=== PATIENT | male | born 1955 | race Caucasian/White ===

== ENCOUNTER 2018-11-26 13:20 | Inpatient (IN) | payer MEDICARE, OTHER ==
[2018-11-26] MEDS ORDERED: DEXTROSE 5%-0.45% NACL 1,000 ML IV (14:12)
[2018-11-26] MEDS ORDERED: VANCOMYCIN IV PER PHARMACY XX (14:30)
[2018-11-26] MEDS ORDERED: ACETAMINOPHEN 650MG/20.3ML CUP PO (14:30)
[2018-11-26] MEDS ORDERED: ONDANSETRON 4 MG INJ IV (14:30)
[2018-11-26] MEDS ORDERED: MAGNESIUM HYDROXIDE 30ML CUP PO (14:30)
[2018-11-26] MEDS ORDERED: ALBUTEROL 0.083% (NEB) 2.5 MG/3 ML AMP NEB (14:30)
[2018-11-26] MEDS ORDERED: ACETAMINOPHEN 650 MG SUPP PR (14:30)
[2018-11-26] MEDS ORDERED: DOCUSATE SODIUM 100 MG CAP PO (14:30)
[2018-11-26] MEDS: NORepinephrine 8MG/250 ML (PMX 250 ML IV (14:40)
[2018-11-26 14:47] LABS: ABNORMAL IP MESSAGE 1; MEAN CORPUSCULAR HEMOGLOBIN 28.4 pg (29.0-33.0); MEAN CORPUSCULAR VOLUME 94.7 fl (82.0-101.0); NUCLEATED RED BLOOD CELLS% 0.4 /100WBC (0.0-0.0); POSITIVE DIFF @See below; RED BLOOD COUNT 2.43 10^6/ul (4.70-6.10); RED CELL DISTRIBUTION WIDTH 21.6 % (11.5-14.5)
[2018-11-26 14:48] LABS: Allen Test ACCEPTAB; Arterial Base Excess 0.3 mmol/L (-3.0-3); Arterial Blood Gas Oxygen Sat 96.7 mmHG (95.0-98.0); Arterial COHb 0.8 % (0.0-3.0); Arterial Fraction of Oxyhgb 95.6 % (93.0-99.0); Arterial HCO3 22.7 mmol/L (22.0-26.0); Arterial MetHb 0.3 % (0.0-1.5); Arterial pCO2 27.6 mmhg (35-45); MODE NASAL CANNULA; Site Right Radial
[2018-11-26] MEDS ORDERED: NORepinephrine 8MG/250 ML (PMX 250 ML (14:55)
[2018-11-26 14:58] LABS: HEMOGLOBIN 6.9 g/dl (14.0-18.0); PLATELET COUNT 40 10^3/UL (140-415)
[2018-11-26 14:59] LABS: ADD MAN DIFF? YES
[2018-11-26 15:09] LABS: ALANINE AMINOTRANSFERASE 58 IU/L (13-69); ALBUMIN 2.4 g/dl (3.3-4.9); ALKALINE PHOSPHATASE 43 IU/L (42-121); ANION GAP 7 (5-13); ASPARTATE AMINO TRANSFERASE 29 IU/L (15-46); BILIRUBIN,INDIRECT 1.7 mg/dl (0-1.1); BILIRUBIN,TOTAL 1.7 mg/dl (0.2-1.3); BLOOD UREA NITROGEN 88 mg/dl (7-20); CALCIUM 7.5 mg/dl (8.4-10.2); CARBON DIOXIDE 24 mmol/L (21-31); CHLORIDE 121 mmol/L (97-110); CREATININE 1.64 mg/dl (0.61-1.24); Estimated GFR 42 mL/min (>60); GLUCOSE 178 mg/dl (70-220); MAGNESIUM 2.8 mg/dl (1.7-2.5); POTASSIUM 4.1 mmol/L (3.5-5.1); SODIUM 152 mmol/L (135-144); TOTAL PROTEIN 5.4 g/dl (6.1-8.1)
[2018-11-26] MEDS: DEXTROSE 5% 1,000 ML IV (15:19)
[2018-11-26] MEDS: MEROPENEM 1 GM/50ML(PMX) 50 ML IVPB ×2 (15:23→20:14)
[2018-11-26 15:26] LABS: TOTAL IRON BINDING CAPACITY 191 ug/dl (241-421)
[2018-11-26 15:39] LABS: IRON < 10 ug/dl (35-150)
[2018-11-26] MEDS: ALBUTEROL 0.083% (NEB) 2.5 MG/3 ML AMP NEB ×2 (16:10→21:38)
[2018-11-26 16:21] LABS: ANISOCYTOSIS 1+ (0-0); BAND NEUTROPHILS #M 0.4 10^3/ul (0.0-0.6); BAND NEUTROPHILS % (M) 4 % (0-4); LYMPHOCYTES #M 0.3 10^3/ul (0.8-2.9); LYMPHOCYTES % (M) 3 % (15-51); OVALOCYTES 2+ (0-0); PLATELET ESTIMATE NORMAL; POIKILOCYTOSIS 1+ (0-0); POLYCHROMASIA 2+ (0-0); SEG NEUT #M 10.3 10^3/ul (1.6-7.5); SEGMENTED NEUTROPHILS (M) % 93 % (39-77); SMUDGE%M 4 % (0-0)
[2018-11-26] MEDS ORDERED: PHENYLephrine 20MG IN 250 ML 250 ML (16:28)
[2018-11-26] MEDS: VANCOMYCIN HCL 1.5 GM in SOD CHLORIDE 0.9% 250 ML IVPB (16:56)
[2018-11-26] MEDS: MIDODRINE 5 MG TAB GTB (17:00)
[2018-11-26] MEDS: LIDOCAINE 1% (MPF) 5 ML VIAL SC (17:15)
[2018-11-26] MEDS ORDERED: PHENTOLAMINE 5 MG INJ IV (18:00)
[2018-11-26] MEDS: INSULIN ASPART [NOVOLOG] 3 ML PEN SC ×2 (18:40→20:19)
[2018-11-26] MEDS: PHENTOLAMINE 5 MG INJ SC (18:58)
[2018-11-26] MEDS: MICONAZOLE 2% 30 GM CR TOP (20:14)
[2018-11-26] MEDS: FAMOTIDINE 20 MG INJ IV (20:14)
[2018-11-26] MEDS: DIGOXIN 500 MCG INJ IV (20:14)
[2018-11-26] MEDS: QUETIAPINE 25 MG TAB PO (20:15)
[2018-11-27 01:16] LABS: LACTIC ACID 1.7 mmol/L (0.5-2.0)
[2018-11-27] MEDS: ALBUTEROL 0.083% (NEB) 2.5 MG/3 ML AMP NEB ×6 (01:21→20:08)
[2018-11-27] MEDS: INSULIN ASPART [NOVOLOG] 3 ML PEN SC ×6 (01:37→20:19)
[2018-11-27 05:27] LABS: ABNORMAL IP MESSAGE 1; HEMATOCRIT 26.8 % (42.0-52.0); HEMOGLOBIN 8.2 g/dl (14.0-18.0); MEAN CORPUSCULAR HEMOGLOBIN 29.1 pg (29.0-33.0); MEAN CORPUSCULAR HGB CONC 30.6 g/dl (32.0-37.0); MEAN PLATELET VOLUME 11.9 fl (7.4-10.4); PLATELET COUNT 35 10^3/UL (140-415); POSITIVE DIFF @See below; RED BLOOD COUNT 2.82 10^6/ul (4.70-6.10); RED CELL DISTRIBUTION WIDTH 20.1 % (11.5-14.5)
[2018-11-27 05:27] LABS: WHITE BLOOD COUNT 15.8 10^3/ul (4.8-10.8)
[2018-11-27 05:46] LABS: ADD MAN DIFF? YES
[2018-11-27 05:54] LABS: LACTIC ACID 1.9 mmol/L (0.5-2.0)
[2018-11-27 05:55] LABS: INR 2.49; PT RATIO 2.1
[2018-11-27 06:01] LABS: ALANINE AMINOTRANSFERASE 55 IU/L (13-69); ALBUMIN 2.5 g/dl (3.3-4.9); ALBUMIN/GLOBULIN RATIO 0.86; ALKALINE PHOSPHATASE 40 IU/L (42-121); ANION GAP 8 (5-13); ASPARTATE AMINO TRANSFERASE 33 IU/L (15-46); BILIRUBIN,INDIRECT 2.1 mg/dl (0-1.1); BILIRUBIN,TOTAL 2.1 mg/dl (0.2-1.3); BLOOD UREA NITROGEN 94 mg/dl (7-20); CALCIUM 7.4 mg/dl (8.4-10.2); CARBON DIOXIDE 25 mmol/L (21-31); CHLORIDE 118 mmol/L (97-110); Estimated GFR 41 mL/min (>60); GLUCOSE 132 mg/dl (70-220); MAGNESIUM 2.7 mg/dl (1.7-2.5); POTASSIUM 4.5 mmol/L (3.5-5.1); SODIUM 151 mmol/L (135-144); TOTAL PROTEIN 5.4 g/dl (6.1-8.1)
[2018-11-27] MEDS: DEXTROSE 5% 1,000 ML IV ×2 (07:05→21:19)
[2018-11-27] MEDS: ALBUMIN HUMAN 25% 100 ML IV ×3 (07:05→18:34)
[2018-11-27] MEDS: MEROPENEM 1 GM/50ML(PMX) 50 ML IVPB ×2 (08:27→20:12)
[2018-11-27] MEDS: CITALOPRAM 20 MG TAB PO (09:00)
[2018-11-27] MEDS: MIDODRINE 5 MG TAB GTB ×3 (09:00→15:50)
[2018-11-27] MEDS: QUETIAPINE 25 MG TAB PO ×2 (09:00→20:03)
[2018-11-27] MEDS: ALBUMIN HUMAN 25% 50 ML IV ×3 (10:28→20:11)
[2018-11-27] MEDS: MICONAZOLE 2% 30 GM CR TOP ×2 (10:29→21:44)
[2018-11-27 11:19] LABS: PROCALCITONIN 2.23 ng/mL (0.00-0.10)
[2018-11-27 11:21] LABS: ANISOCYTOSIS 2+ (0-0); BAND NEUTROPHILS #M 4.4 10^3/ul (0.0-0.6); BAND NEUTROPHILS % (M) 28 % (0-4); ERYTHROBLAST% (NRBC) (M) 3 % (0-0); GIANT THROMBO% (M) 1 % (0-0); LYMPHOCYTES #M 0.3 10^3/ul (0.8-2.9); LYMPHOCYTES % (M) 2 % (15-51); MICROCYTOSIS 1+ (0-0); MONOCYTE #M 0.6 10^3/ul (0.3-0.9); MONOCYTES % (M) 4 % (0-11); PLATELET ESTIMATE SIG DECREASED; POIKILOCYTOSIS 3+ (0-0); POLYCHROMASIA 3+ (0-0); REACTIVE LYMPHOCYTES #M 0.1 10^3/ul (0.0-0.0); REACTIVE LYMPHOCYTES% (M) 1 % (0-0); SEGMENTED NEUTROPHILS (M) % 65 % (39-77); SMUDGE%M 10 % (0-0)
[2018-11-27 14:40] LABS: OCCULT BLOOD STOOL POSITIVE (NEGATIVE)
[2018-11-27] MEDS: NORepinephrine 8MG/250 ML (PMX 250 ML IV (15:37)
[2018-11-27] MEDS: VANCOMYCIN 1 GM 250 ML IVPB (15:41)
[2018-11-27] MEDS: SOD CHLORIDE 0.9% 500 ML IV ×2 (15:50→18:31)
[2018-11-27] MEDS: PHENYLephrine 80 MG in DEXTROSE 5% 242 ML IV ×2 (16:22→20:30)
[2018-11-27] MEDS: FAMOTIDINE 20 MG INJ IV (20:12)
[2018-11-27] MEDS: DIGOXIN 500 MCG INJ IV (20:12)
[2018-11-27] MEDS: HALOPERIDOL 5 MG INJ IM (22:02)
[2018-11-28] MEDS: INSULIN ASPART [NOVOLOG] 3 ML PEN SC ×6 (01:00→21:00)
[2018-11-28] MEDS: ALBUTEROL 0.083% (NEB) 2.5 MG/3 ML AMP NEB ×6 (01:14→21:03)
[2018-11-28] MEDS: PHENYLephrine 80 MG in DEXTROSE 5% 242 ML IV ×4 (01:34→14:40)
[2018-11-28] MEDS: ALBUMIN HUMAN 25% 50 ML IV ×2 (01:45→09:38)
[2018-11-28] MEDS: NORepinephrine 8MG/250 ML (PMX 250 ML IV ×2 (03:57→20:19)
[2018-11-28 04:50] LABS: ADD MAN DIFF? NO
[2018-11-28 05:37] LABS: PHOSPHORUS 3.2 mg/dl (2.5-4.9)
[2018-11-28 05:41] LABS: DIGOXIN 1.2 ng/ml (1.0-2.0)
[2018-11-28 05:50] LABS: WHITE BLOOD COUNT 16.9 10^3/ul (4.8-10.8)
[2018-11-28 05:50] LABS: ABNORMAL IP MESSAGE 1; BASOPHILS % 0.1 % (0.0-2.0); HEMATOCRIT 23.4 % (42.0-52.0); HEMOGLOBIN 7.4 g/dl (14.0-18.0); LYMPHOCYTES # 0.6 10^3/ul (0.8-2.9); LYMPHOCYTES % 3.5 % (15.0-51.0); MEAN CORPUSCULAR HEMOGLOBIN 29.5 pg (29.0-33.0); MEAN CORPUSCULAR HGB CONC 31.6 g/dl (32.0-37.0); MEAN CORPUSCULAR VOLUME 93.2 fl (82.0-101.0); MONOCYTE # 0.6 10^3/ul (0.3-0.9); MONOCYTES % 3.5 % (0.0-11.0); NEUTROPHIL # 15.6 10^3/ul (1.6-7.5); NEUTROPHILS % 91.9 % (39.0-77.0); NUCLEATED RED BLOOD CELLS # 0.5 10^3/ul (0.0-0.0); NUCLEATED RED BLOOD CELLS% 2.8 /100WBC (0.0-0.0); POSITIVE DIFF @See below; RED BLOOD COUNT 2.51 10^6/ul (4.70-6.10); RED CELL DISTRIBUTION WIDTH 19.8 % (11.5-14.5)
[2018-11-28 05:59] LABS: PLATELET COUNT 29 10^3/UL (140-415)
[2018-11-28 06:05] LABS: THYROID STIMULATING HORMONE 0.128 MIU/L (0.465-4.680)
[2018-11-28 07:03] LABS: ALANINE AMINOTRANSFERASE 41 IU/L (13-69); ALBUMIN 3.2 g/dl (3.3-4.9); ALBUMIN/GLOBULIN RATIO 1.28; ALKALINE PHOSPHATASE 39 IU/L (42-121); ANION GAP 16 (5-13); ASPARTATE AMINO TRANSFERASE 27 IU/L (15-46); BILIRUBIN,INDIRECT 3.1 mg/dl (0-1.1); BILIRUBIN,TOTAL 3.8 mg/dl (0.2-1.3); BLOOD UREA NITROGEN 80 mg/dl (7-20); CALCIUM 7.4 mg/dl (8.4-10.2); CARBON DIOXIDE 17 mmol/L (21-31); CHLORIDE 112 mmol/L (97-110); CREATININE 1.57 mg/dl (0.61-1.24); Estimated GFR 45 mL/min (>60); GLUCOSE 124 mg/dl (70-220); MAGNESIUM 2.6 mg/dl (1.7-2.5); POTASSIUM 4.3 mmol/L (3.5-5.1); SODIUM 145 mmol/L (135-144); TOTAL PROTEIN 5.7 g/dl (6.1-8.1)
[2018-11-28 07:40] LABS: PROTIME 37.7 Sec (11.9-14.9); PT RATIO 2.9
[2018-11-28 07:41] LABS: INR 3.83
[2018-11-28] MEDS: MIDODRINE 5 MG TAB GTB ×3 (09:00→17:00)
[2018-11-28] MEDS: CITALOPRAM 20 MG TAB PO (09:00)
[2018-11-28] MEDS: QUETIAPINE 25 MG TAB PO ×2 (09:00→20:13)
[2018-11-28] MEDS: MICONAZOLE 2% 30 GM CR TOP ×2 (09:42→20:13)
[2018-11-28] MEDS: MEROPENEM 1 GM/50ML(PMX) 50 ML IVPB ×2 (09:44→20:13)
[2018-11-28] MEDS: DEXTROSE 5% 1,000 ML IV ×2 (10:39→20:13)
[2018-11-28 10:53] LABS: TYPE AND SCREEN 1
[2018-11-28 11:26] LABS: IMMEDIATE SPIN CROSSMATCH 1 2
[2018-11-28] MEDS: ACETAMINOPHEN 1000MG/100ML IV 100 ML IVPB (11:44)
[2018-11-28] MEDS: PHYTONADIONE 10 MG in DEXTROSE 5% 50 ML IVPB (12:43)
[2018-11-28] MEDS: VANCOMYCIN 1 GM 250 ML IVPB (16:59)
[2018-11-28] MEDS: FAMOTIDINE 20 MG INJ IV (20:13)
[2018-11-28 23:58] LABS: ADD UMIC YES; UR ASCORBIC ACID NEGATIVE (NEGATIVE); UR BACTERIA FEW /HPF (NONE SEEN); UR BILIRUBIN (Dip) NEGATIVE (NEGATIVE); UR BLOOD (Dip) 2+ mg/dL (NEGATIVE); UR CLARITY CLOUDY (CLEAR); UR COLOR AMBER (YELLOW); UR GLUCOSE (Dip) NEGATIVE (NEGATIVE); UR GRANULAR CAST FEW /HPF (NONE SEEN); UR HYALINE CAST FEW /HPF (NONE SEEN); UR KETONES (Dip) NEGATIVE (NEGATIVE); UR LEUKOCYTE ESTERASE (Dip) TRACE Leu/ul (NEGATIVE); UR MUCUS FEW /HPF (NONE SEEN); UR NITRITE (Dip) NEGATIVE (NEGATIVE); UR RBC 20 /HPF (0-5); UR SPECIFIC GRAVITY (Dip) 1.017 (1.003-1.030); UR TOTAL PROTEIN (Dip) 1+ mg/dl (NEGATIVE); UR UROBILINOGEN (Dip) 1+ mg/dL (NEGATIVE); UR WBC 10 /HPF (0-5)
[2018-11-29] LABS: CREATININE,URINE RANDOM 69.92 mg/dl (20-370)
[2018-11-29 00:01] LABS: SODIUM,URINE RANDOM < 13 mmol/L (30-90)
[2018-11-29] MEDS: ALBUTEROL 0.083% (NEB) 2.5 MG/3 ML AMP NEB ×6 (01:36→20:42)
[2018-11-29] MEDS: PHENYLephrine 80 MG in DEXTROSE 5% 242 ML IV ×6 (01:51→23:58)
[2018-11-29] MEDS: INSULIN ASPART [NOVOLOG] 3 ML PEN SC ×6 (01:52→20:40)
[2018-11-29 05:40] LABS: ADD MAN DIFF? NO
[2018-11-29 05:48] LABS: ABNORMAL IP MESSAGE 1; BASOPHILS % 0.2 % (0.0-2.0); HEMATOCRIT 26.3 % (42.0-52.0); HEMOGLOBIN 8.7 g/dl (14.0-18.0); LYMPHOCYTES # 0.7 10^3/ul (0.8-2.9); LYMPHOCYTES % 4.2 % (15.0-51.0); MEAN CORPUSCULAR HEMOGLOBIN 29.3 pg (29.0-33.0); MEAN CORPUSCULAR HGB CONC 33.1 g/dl (32.0-37.0); MEAN CORPUSCULAR VOLUME 88.6 fl (82.0-101.0); MONOCYTE # 0.6 10^3/ul (0.3-0.9); MONOCYTES % 3.6 % (0.0-11.0); NEUTROPHIL # 15.4 10^3/ul (1.6-7.5); NUCLEATED RED BLOOD CELLS # 0.4 10^3/ul (0.0-0.0); NUCLEATED RED BLOOD CELLS% 2.6 /100WBC (0.0-0.0); POSITIVE DIFF @See below; RED BLOOD COUNT 2.97 10^6/ul (4.70-6.10); RED CELL DISTRIBUTION WIDTH 20.4 % (11.5-14.5)
[2018-11-29 05:48] LABS: WHITE BLOOD COUNT 16.9 10^3/ul (4.8-10.8)
[2018-11-29 05:55] LABS: PLATELET COUNT 40 10^3/UL (140-415)
[2018-11-29 06:17] LABS: INR 2.28; PROTIME 25.2 Sec (11.9-14.9)
[2018-11-29 06:18] LABS: ALANINE AMINOTRANSFERASE 38 IU/L (13-69); ALBUMIN 2.7 g/dl (3.3-4.9); ALBUMIN/GLOBULIN RATIO 1.08; ALKALINE PHOSPHATASE 49 IU/L (42-121); ANION GAP 11 (5-13); ASPARTATE AMINO TRANSFERASE 27 IU/L (15-46); BILIRUBIN,INDIRECT 4.4 mg/dl (0-1.1); BILIRUBIN,TOTAL 5.8 mg/dl (0.2-1.3); BLOOD UREA NITROGEN 70 mg/dl (7-20); CALCIUM 7.3 mg/dl (8.4-10.2); CARBON DIOXIDE 20 mmol/L (21-31); CHLORIDE 111 mmol/L (97-110); CREATININE 1.33 mg/dl (0.61-1.24); Estimated GFR 54 mL/min (>60); GLUCOSE 191 mg/dl (70-220); MAGNESIUM 2.5 mg/dl (1.7-2.5); POTASSIUM 4.1 mmol/L (3.5-5.1); SODIUM 142 mmol/L (135-144); TOTAL PROTEIN 5.2 g/dl (6.1-8.1)
[2018-11-29 06:28] LABS: PHOSPHORUS 3.2 mg/dl (2.5-4.9)
[2018-11-29] MEDS: MEROPENEM 1 GM/50ML(PMX) 50 ML IVPB ×2 (08:20→20:31)
[2018-11-29] MEDS: DEXTROSE 5%-0.9% NACL 1,000 ML IV ×2 (08:22→20:38)
[2018-11-29] MEDS: CITALOPRAM 20 MG TAB PO (08:31)
[2018-11-29] MEDS: MIDODRINE 5 MG TAB GTB ×3 (08:31→17:00)
[2018-11-29] MEDS: MICONAZOLE 2% 30 GM CR TOP ×2 (08:31→20:31)
[2018-11-29] MEDS: QUETIAPINE 25 MG TAB PO ×2 (08:36→20:26)
[2018-11-29 08:42] LABS: Allen Test ACCEPTAB; Arterial Base Excess -4.8 mmol/L (-3.0-3); Arterial Fraction of Oxyhgb 89.9 % (93.0-99.0); Arterial HCO3 16.7 mmol/L (22.0-26.0); Arterial MetHb 0.2 % (0.0-1.5); Arterial pCO2 21.5 mmhg (35-45); MODE ROOM AIR; Site Right Radial
[2018-11-29] MEDS: NORepinephrine 8MG/250 ML (PMX 250 ML IV (09:49)
[2018-11-29] MEDS: FAMOTIDINE 20 MG INJ IV (20:31)
[2018-11-30] MEDS: ALBUTEROL 0.083% (NEB) 2.5 MG/3 ML AMP NEB ×6 (00:42→20:50)
[2018-11-30] MEDS: INSULIN ASPART [NOVOLOG] 3 ML PEN SC ×6 (01:10→21:00)
[2018-11-30] MEDS: PHENYLephrine 80 MG in DEXTROSE 5% 242 ML IV ×4 (04:24→22:15)
[2018-11-30 05:17] LABS: ADD MAN DIFF? NO
[2018-11-30 05:21] LABS: ABNORMAL IP MESSAGE 1; HEMATOCRIT 21.5 % (42.0-52.0); LYMPHOCYTES # 0.5 10^3/ul (0.8-2.9); LYMPHOCYTES % 4.5 % (15.0-51.0); MEAN CORPUSCULAR HEMOGLOBIN 28.6 pg (29.0-33.0); MEAN CORPUSCULAR HGB CONC 32.1 g/dl (32.0-37.0); MEAN CORPUSCULAR VOLUME 89.2 fl (82.0-101.0); MONOCYTE # 0.6 10^3/ul (0.3-0.9); MONOCYTES % 5.3 % (0.0-11.0); NEUTROPHIL # 9.3 10^3/ul (1.6-7.5); NEUTROPHILS % 89.4 % (39.0-77.0); NUCLEATED RED BLOOD CELLS # 0.2 10^3/ul (0.0-0.0); NUCLEATED RED BLOOD CELLS% 1.8 /100WBC (0.0-0.0); POSITIVE DIFF @See below; RED BLOOD COUNT 2.41 10^6/ul (4.70-6.10); RED CELL DISTRIBUTION WIDTH 20.7 % (11.5-14.5)
[2018-11-30 05:21] LABS: WHITE BLOOD COUNT 10.4 10^3/ul (4.8-10.8)
[2018-11-30 05:45] LABS: HEMOGLOBIN 6.9 g/dl (14.0-18.0)
[2018-11-30 05:46] LABS: PLATELET COUNT 19 10^3/UL (140-415)
[2018-11-30 05:48] LABS: PATH REVIEW? YES
[2018-11-30 06:05] LABS: Estimated GFR > 60 mL/min (>60)
[2018-11-30 06:18] LABS: ADD MAN DIFF? NO
[2018-11-30 06:24] LABS: ABNORMAL IP MESSAGE 1; BASOPHILS % 0.1 % (0.0-2.0); HEMATOCRIT 25.5 % (42.0-52.0); HEMOGLOBIN 8.2 g/dl (14.0-18.0); LYMPHOCYTES # 0.5 10^3/ul (0.8-2.9); LYMPHOCYTES % 4.4 % (15.0-51.0); MEAN CORPUSCULAR HEMOGLOBIN 28.7 pg (29.0-33.0); MEAN CORPUSCULAR HGB CONC 32.2 g/dl (32.0-37.0); MEAN CORPUSCULAR VOLUME 89.2 fl (82.0-101.0); MONOCYTE # 0.6 10^3/ul (0.3-0.9); MONOCYTES % 5.5 % (0.0-11.0); NEUTROPHIL # 10.2 10^3/ul (1.6-7.5); NUCLEATED RED BLOOD CELLS # 0.2 10^3/ul (0.0-0.0); POSITIVE DIFF @See below; RED BLOOD COUNT 2.86 10^6/ul (4.70-6.10); RED CELL DISTRIBUTION WIDTH 20.5 % (11.5-14.5)
[2018-11-30 06:24] LABS: WHITE BLOOD COUNT 11.4 10^3/ul (4.8-10.8)
[2018-11-30 06:29] LABS: PLATELET COUNT 16 10^3/UL (140-415)
[2018-11-30 06:42] LABS: INR 1.58; PT RATIO 1.5
[2018-11-30 07:26] LABS: ANION GAP 6 (5-13); BLOOD UREA NITROGEN 43 mg/dl (7-20); CARBON DIOXIDE 21 mmol/L (21-31); CHLORIDE 116 mmol/L (97-110); CREATININE 0.86 mg/dl (0.61-1.24); MAGNESIUM 2.3 mg/dl (1.7-2.5); PHOSPHORUS 2.3 mg/dl (2.5-4.9); SODIUM 143 mmol/L (135-144)
[2018-11-30 07:52] LABS: CALCIUM 7.3 mg/dl (8.4-10.2); GLUCOSE 112 mg/dl (70-220); POTASSIUM 3.3 mmol/L (3.5-5.1)
[2018-11-30] MEDS: MIDODRINE 5 MG TAB GTB ×3 (08:10→16:31)
[2018-11-30] MEDS: QUETIAPINE 25 MG TAB PO ×2 (08:10→21:00)
[2018-11-30] MEDS: CITALOPRAM 20 MG TAB PO (08:10)
[2018-11-30] MEDS: DEXTROSE 5%-0.9% NACL 1,000 ML IV (08:15)
[2018-11-30] MEDS: MEROPENEM 1 GM/50ML(PMX) 50 ML IVPB ×2 (08:16→22:39)
[2018-11-30] MEDS: MICONAZOLE 2% 30 GM CR TOP ×2 (08:17→21:00)
[2018-11-30 09:27] LABS: AMMONIA < 9 umol/l (9-30)
[2018-11-30 09:38] LABS: ANISOCYTOSIS 2+ (0-0); BAND NEUTROPHILS #M 0.3 10^3/ul (0.0-0.6); BAND NEUTROPHILS % (M) 3 % (0-4); BURR CELLS 2+ (0-0); ERYTHROBLAST% (NRBC) (M) 2 % (0-0); LYMPHOCYTES #M 0.3 10^3/ul (0.8-2.9); LYMPHOCYTES % (M) 3 % (15-51); OVALOCYTES 1+ (0-0); PLATELET ESTIMATE SIG DECREASED; POIKILOCYTOSIS 3+ (0-0); POLYCHROMASIA 2+ (0-0); SEG NEUT #M 9.8 10^3/ul (1.6-7.5); SEGMENTED NEUTROPHILS (M) % 94 % (39-77); SMUDGE%M 5 % (0-0)
[2018-11-30] MEDS: POTASSIUM CHLORIDE 100 ML IVPB ×3 (09:40→13:57)
[2018-11-30] MEDS: SOD FERRIC GLUC COMPLX 125 MG in SOD CHLORIDE 0.9% 100 ML IVPB (13:49)
[2018-11-30 15:57] LABS: CREATININE, RANDOM URINE 72 mg/dL (20-320); MICROALBUMIN 23.2 mg/dL; MICROALBUMIN/CREATININE RATIO 322 (<30)
[2018-11-30 16:20] LABS: HEPATITIS B SURFACE ANTIGEN NEGATIVE (NEGATIVE)
[2018-11-30] MEDS: CASPOFUNGIN 70 MG in SOD CHLORIDE 0.9% 250 ML IVPB (16:31)
[2018-11-30] MEDS: WARFARIN 1 MG TAB PO (16:31)
[2018-11-30 16:38] LABS: HEPATITIS B CORE ANTIBODY NEGATIVE (NEGATIVE); HEPATITIS C VIRAL ANTIBODY NEGATIVE (NEGATIVE)
[2018-11-30] MEDS: HALOPERIDOL 5 MG INJ IM (22:40)
[2018-11-30] MEDS: FAMOTIDINE 20 MG INJ IV (22:45)
[2018-11-30] MEDS: LORAZEPAM 2 MG INJ IV (23:48)
[2018-12-01] MEDS: DILTIAZEM 25 MG INJ IV
[2018-12-01] MEDS: DEXTROSE 5%-0.9% NACL 1,000 ML IV (00:31)
[2018-12-01] MEDS: INSULIN ASPART [NOVOLOG] 3 ML PEN SC ×6 (01:00→20:28)
[2018-12-01] MEDS: ALBUTEROL 0.083% (NEB) 2.5 MG/3 ML AMP NEB ×6 (01:08→20:21)
[2018-12-01 04:56] LABS: ADD MAN DIFF? NO
[2018-12-01 05:02] LABS: WHITE BLOOD COUNT 6.2 10^3/ul (4.8-10.8)
[2018-12-01 05:02] LABS: BASOPHILS % 0.2 % (0.0-2.0); EOSINOPHILS % 0.2 % (0.0-7.0); HEMATOCRIT 24.5 % (42.0-52.0); HEMOGLOBIN 7.7 g/dl (14.0-18.0); LYMPHOCYTES # 0.5 10^3/ul (0.8-2.9); LYMPHOCYTES % 7.3 % (15.0-51.0); MEAN CORPUSCULAR HEMOGLOBIN 28.5 pg (29.0-33.0); MEAN CORPUSCULAR HGB CONC 31.4 g/dl (32.0-37.0); MEAN CORPUSCULAR VOLUME 90.7 fl (82.0-101.0); MONOCYTE # 0.4 10^3/ul (0.3-0.9); MONOCYTES % 6.6 % (0.0-11.0); NEUTROPHIL # 5.2 10^3/ul (1.6-7.5); NEUTROPHILS % 83.4 % (39.0-77.0); NUCLEATED RED BLOOD CELLS # 0.2 10^3/ul (0.0-0.0); NUCLEATED RED BLOOD CELLS% 2.8 /100WBC (0.0-0.0); RED CELL DISTRIBUTION WIDTH 21.1 % (11.5-14.5)
[2018-12-01 05:03] LABS: ABNORMAL IP MESSAGE 1; POSITIVE DIFF @See below
[2018-12-01 05:21] LABS: PLATELET COUNT 21 10^3/UL (140-415)
[2018-12-01 05:23] LABS: INR 1.54; PROTIME 18.6 Sec (11.9-14.9); PT RATIO 1.5
[2018-12-01 05:35] LABS: ANION GAP 7 (5-13); BLOOD UREA NITROGEN 34 mg/dl (7-20); CALCIUM 7.3 mg/dl (8.4-10.2); CARBON DIOXIDE 21 mmol/L (21-31); CHLORIDE 119 mmol/L (97-110); CREATININE 0.89 mg/dl (0.61-1.24); Estimated GFR > 60 mL/min (>60); GLUCOSE 130 mg/dl (70-220); MAGNESIUM 2.3 mg/dl (1.7-2.5); PHOSPHORUS 2.1 mg/dl (2.5-4.9); POTASSIUM 3.9 mmol/L (3.5-5.1); SODIUM 147 mmol/L (135-144)
[2018-12-01 05:38] LABS: ALANINE AMINOTRANSFERASE 36 IU/L (13-69); ALBUMIN 2.3 g/dl (3.3-4.9); ALKALINE PHOSPHATASE 45 IU/L (42-121); ASPARTATE AMINO TRANSFERASE 30 IU/L (15-46); BILIRUBIN,INDIRECT 3.8 mg/dl (0-1.1); BILIRUBIN,TOTAL 6.9 mg/dl (0.2-1.3)
[2018-12-01] MEDS: CITALOPRAM 20 MG TAB PO (08:03)
[2018-12-01] MEDS: QUETIAPINE 25 MG TAB PO ×2 (08:04→20:29)
[2018-12-01] MEDS: MIDODRINE 5 MG TAB GTB ×3 (09:00→17:00)
[2018-12-01] MEDS: MICONAZOLE 2% 30 GM CR TOP ×2 (09:13→20:30)
[2018-12-01] MEDS: MEROPENEM 1 GM/50ML(PMX) 50 ML IVPB ×2 (09:14→20:25)
[2018-12-01] MEDS: POTASSIUM PHOSPHATE 20 MEQ in SOD CHLORIDE 0.9% 250 ML IVPB (09:18)
[2018-12-01] MEDS ORDERED: PANTOPRAZOLE 40 MG INJ IV (09:30)
[2018-12-01] MEDS: DEXTROSE 5%-0.45% NACL 1,000 ML IV ×2 (09:37→19:37)
[2018-12-01] MEDS: FAMOTIDINE 20 MG INJ IV ×2 (11:16→20:25)
[2018-12-01 13:07] LABS: IMMEDIATE SPIN CROSSMATCH 1 2
[2018-12-01] MEDS: SOD FERRIC GLUC COMPLX 125 MG in SOD CHLORIDE 0.9% 100 ML IVPB (13:44)
[2018-12-01] MEDS: SOD CHLORIDE 0.9% 250 ML IV* (13:45)
[2018-12-01] MEDS: morphine 2 MG INJ IV (14:31)
[2018-12-01] MEDS: CASPOFUNGIN 50 MG in SOD CHLORIDE 0.9% 250 ML IVPB (18:06)
[2018-12-01] MEDS: PHENYLephrine 80 MG in DEXTROSE 5% 242 ML IV (18:39)
[2018-12-02] MEDS: INSULIN ASPART [NOVOLOG] 3 ML PEN SC ×6 (01:00→21:00)
[2018-12-02] MEDS: ALBUTEROL 0.083% (NEB) 2.5 MG/3 ML AMP NEB ×6 (01:04→20:01)
[2018-12-02] MEDS: PHENYLephrine 80 MG in DEXTROSE 5% 242 ML IV ×2 (01:36→14:32)
[2018-12-02] MEDS: DEXTROSE 5%-0.45% NACL 1,000 ML IV ×2 (04:14→17:07)
[2018-12-02] MEDS: morphine 2 MG INJ IV ×3 (04:18→17:14)
[2018-12-02 05:26] LABS: ABNORMAL IP MESSAGE 1; HEMATOCRIT 23.1 % (42.0-52.0); HEMOGLOBIN 7.3 g/dl (14.0-18.0); MEAN CORPUSCULAR HEMOGLOBIN 29.3 pg (29.0-33.0); MEAN CORPUSCULAR HGB CONC 31.6 g/dl (32.0-37.0); MEAN CORPUSCULAR VOLUME 92.8 fl (82.0-101.0); PLATELET COUNT 31 10^3/UL (140-415); POSITIVE DIFF @See below; RED BLOOD COUNT 2.49 10^6/ul (4.70-6.10); RED CELL DISTRIBUTION WIDTH 23.4 % (11.5-14.5)
[2018-12-02 05:26] LABS: WHITE BLOOD COUNT 7.3 10^3/ul (4.8-10.8)
[2018-12-02 05:43] LABS: ADD MAN DIFF? YES
[2018-12-02 05:47] LABS: ANION GAP 10 (5-13); BLOOD UREA NITROGEN 33 mg/dl (7-20); CALCIUM 7.3 mg/dl (8.4-10.2); CARBON DIOXIDE 16 mmol/L (21-31); CHLORIDE 115 mmol/L (97-110); CREATININE 0.92 mg/dl (0.61-1.24); Estimated GFR > 60 mL/min (>60); GLUCOSE 308 mg/dl (70-220); PHOSPHORUS 3.2 mg/dl (2.5-4.9); POTASSIUM 4.1 mmol/L (3.5-5.1); SODIUM 141 mmol/L (135-144)
[2018-12-02] MEDS: MIDODRINE 5 MG TAB GTB ×3 (09:00→17:00)
[2018-12-02] MEDS: CITALOPRAM 20 MG TAB PO (09:00)
[2018-12-02] MEDS: QUETIAPINE 25 MG TAB PO ×2 (09:00→21:00)
[2018-12-02] MEDS: FAMOTIDINE 20 MG INJ IV ×2 (09:44→21:01)
[2018-12-02] MEDS: MEROPENEM 1 GM/50ML(PMX) 50 ML IVPB ×2 (09:44→21:01)
[2018-12-02] MEDS: MICONAZOLE 2% 30 GM CR TOP ×2 (09:44→21:03)
[2018-12-02 13:36] LABS: ANISOCYTOSIS 2+ (0-0); BAND NEUTROPHILS #M 0.7 10^3/ul (0.0-0.6); BAND NEUTROPHILS % (M) 10 % (0-4); BURR CELLS 3+ (0-0); ERYTHROBLAST% (NRBC) (M) 2 % (0-0); LYMPHOCYTES #M 0.5 10^3/ul (0.8-2.9); LYMPHOCYTES % (M) 7 % (15-51); MONOCYTE #M 0.3 10^3/ul (0.3-0.9); MONOCYTES % (M) 5 % (0-11); PLATELET ESTIMATE SIG DECREASED; POIKILOCYTOSIS 3+ (0-0); POLYCHROMASIA 1+ (0-0); SEG NEUT #M 5.7 10^3/ul (1.6-7.5); SEGMENTED NEUTROPHILS (M) % 78 % (39-77); SMUDGE%M 3 % (0-0)
[2018-12-02] MEDS: SOD FERRIC GLUC COMPLX 125 MG in SOD CHLORIDE 0.9% 100 ML IVPB (14:33)
[2018-12-02] MEDS: CASPOFUNGIN 50 MG in SOD CHLORIDE 0.9% 250 ML IVPB (17:06)
[2018-12-03] MEDS: INSULIN ASPART [NOVOLOG] 3 ML PEN SC ×6 (01:00→20:35)
[2018-12-03] MEDS: morphine 2 MG INJ IV ×4 (01:00→17:37)
[2018-12-03] MEDS: PHENYLephrine 80 MG in DEXTROSE 5% 242 ML IV ×3 (01:08→20:29)
[2018-12-03] MEDS: ALBUTEROL 0.083% (NEB) 2.5 MG/3 ML AMP NEB ×6 (01:33→20:12)
[2018-12-03] MEDS: DEXTROSE 5%-0.45% NACL 1,000 ML IV ×3 (04:19→20:25)
[2018-12-03 05:52] LABS: ADD MAN DIFF? NO
[2018-12-03 06:02] LABS: ABNORMAL IP MESSAGE 1; EOSINOPHILS % 0.3 % (0.0-7.0); LYMPHOCYTES # 0.6 10^3/ul (0.8-2.9); LYMPHOCYTES % 9.9 % (15.0-51.0); MEAN CORPUSCULAR HEMOGLOBIN 29.5 pg (29.0-33.0); MEAN CORPUSCULAR HGB CONC 31.4 g/dl (32.0-37.0); MONOCYTE # 0.5 10^3/ul (0.3-0.9); MONOCYTES % 8.2 % (0.0-11.0); NEUTROPHIL # 5.1 10^3/ul (1.6-7.5); NEUTROPHILS % 80.2 % (39.0-77.0); NUCLEATED RED BLOOD CELLS # 0.3 10^3/ul (0.0-0.0); NUCLEATED RED BLOOD CELLS% 4.7 /100WBC (0.0-0.0); POSITIVE DIFF @See below; RED BLOOD COUNT 2.34 10^6/ul (4.70-6.10); RED CELL DISTRIBUTION WIDTH 24.5 % (11.5-14.5)
[2018-12-03 06:02] LABS: WHITE BLOOD COUNT 6.3 10^3/ul (4.8-10.8)
[2018-12-03 06:21] LABS: HEMOGLOBIN 6.9 g/dl (14.0-18.0); PLATELET COUNT 29 10^3/UL (140-415)
[2018-12-03 06:34] LABS: ANION GAP 8 (5-13); BLOOD UREA NITROGEN 32 mg/dl (7-20); CALCIUM 7.6 mg/dl (8.4-10.2); CARBON DIOXIDE 20 mmol/L (21-31); CHLORIDE 115 mmol/L (97-110); CREATININE 0.78 mg/dl (0.61-1.24); Estimated GFR > 60 mL/min (>60); GLUCOSE 177 mg/dl (70-220); PHOSPHORUS 2.8 mg/dl (2.5-4.9); POTASSIUM 3.6 mmol/L (3.5-5.1); SODIUM 143 mmol/L (135-144)
[2018-12-03 07:17] LABS: ADD MAN DIFF? NO
[2018-12-03 07:23] LABS: WHITE BLOOD COUNT 6.4 10^3/ul (4.8-10.8)
[2018-12-03 07:23] LABS: ABNORMAL IP MESSAGE 1; EOSINOPHILS % 0.5 % (0.0-7.0); LYMPHOCYTES # 0.6 10^3/ul (0.8-2.9); LYMPHOCYTES % 9.6 % (15.0-51.0); MEAN CORPUSCULAR HEMOGLOBIN 29.6 pg (29.0-33.0); MEAN CORPUSCULAR HGB CONC 31.4 g/dl (32.0-37.0); MEAN CORPUSCULAR VOLUME 94.4 fl (82.0-101.0); MONOCYTE # 0.5 10^3/ul (0.3-0.9); NEUTROPHIL # 5.1 10^3/ul (1.6-7.5); NEUTROPHILS % 80.5 % (39.0-77.0); NUCLEATED RED BLOOD CELLS # 0.3 10^3/ul (0.0-0.0); NUCLEATED RED BLOOD CELLS% 4.4 /100WBC (0.0-0.0); PLATELET COUNT 32 10^3/UL (140-415); POSITIVE DIFF @See below; RED BLOOD COUNT 2.33 10^6/ul (4.70-6.10); RED CELL DISTRIBUTION WIDTH 24.7 % (11.5-14.5)
[2018-12-03 07:29] LABS: HEMOGLOBIN 6.9 g/dl (14.0-18.0)
[2018-12-03] MEDS: MIDODRINE 5 MG TAB GTB ×3 (07:54→13:50)
[2018-12-03] MEDS: QUETIAPINE 25 MG TAB PO ×2 (07:56→20:37)
[2018-12-03] MEDS: CITALOPRAM 20 MG TAB PO (07:56)
[2018-12-03] MEDS: FAMOTIDINE 20 MG INJ IV ×2 (08:10→20:24)
[2018-12-03] MEDS: MEROPENEM 1 GM/50ML(PMX) 50 ML IVPB ×2 (08:10→20:24)
[2018-12-03] MEDS: MICONAZOLE 2% 30 GM CR TOP ×2 (08:14→20:36)
[2018-12-03] MEDS: SOD CHLORIDE 0.9% 250 ML IV* (08:27)
[2018-12-03 09:55] LABS: RETICULOCYTE COUNT # 0.188 X10^6 (0.020-0.110); RETICULOCYTE COUNT % 7.8 % (0.5-1.5)
[2018-12-03 10:01] LABS: AADO2 Arterial 96.8 mmHg (7.0-24.0); Allen Test ACCEPTAB; Arterial Base Excess -5.9 mmol/L (-3.0-3); Arterial Blood Gas Oxygen Sat 86.6 mmHG (95.0-98.0); Arterial COHb 2.2 % (0.0-3.0); Arterial Fraction of Oxyhgb 84.4 % (93.0-99.0); Arterial HCO3 18.7 mmol/L (22.0-26.0); Arterial MetHb 0.3 % (0.0-1.5); Arterial pCO2 33.4 mmhg (35-45); MODE NASAL CANNULA; Site Right Radial
[2018-12-03 10:03] LABS: PLATELET COUNT 40 10^3/UL (140-415)
[2018-12-03 10:14] LABS: LACTATE DEHYDROGENASE 1398 IU/L (313-618)
[2018-12-03 10:20] LABS: INR 1.65; PROTIME 19.6 Sec (11.9-14.9); PT RATIO 1.5
[2018-12-03 10:21] LABS: PARTIAL THROMBOPLASTIN TIME 37.9 Sec (23.0-35.0); THROMBIN TIME 15.9 SEC (13.8-19.1)
[2018-12-03 12:04] LABS: TYPE AND SCREEN 1
[2018-12-03] MEDS: SOD FERRIC GLUC COMPLX 125 MG in SOD CHLORIDE 0.9% 100 ML IVPB (12:31)
[2018-12-03] MEDS: FUROSEMIDE 20 MG INJ IV (14:29)
[2018-12-03 15:41] LABS: IMMEDIATE SPIN CROSSMATCH 1 2
[2018-12-03] MEDS: CASPOFUNGIN 50 MG in SOD CHLORIDE 0.9% 250 ML IVPB (15:54)
[2018-12-03 16:27] LABS: IMMEDIATE SPIN CROSSMATCH 1
[2018-12-04] MEDS: INSULIN ASPART [NOVOLOG] 3 ML PEN SC ×3 (01:00→08:33)
[2018-12-04] MEDS: ALBUTEROL 0.083% (NEB) 2.5 MG/3 ML AMP NEB ×3 (04:07→08:44)
[2018-12-04 04:55] LABS: AADO2 Arterial 105.6 mmHg (7.0-24.0); Allen Test ACCEPTAB; Arterial Blood Gas Oxygen Sat 87.6 mmHG (95.0-98.0); Arterial COHb 2.4 % (0.0-3.0); Arterial Fraction of Oxyhgb 85.4 % (93.0-99.0); Arterial HCO3 20.2 mmol/L (22.0-26.0); Arterial MetHb 0.1 % (0.0-1.5); Arterial pCO2 33.6 mmhg (35-45); MODE NASAL CANNULA; Site Right Radial
[2018-12-04 05:21] LABS: ADD MAN DIFF? NO
[2018-12-04 05:27] LABS: LACTIC ACID 1.4 mmol/L (0.5-2.0)
[2018-12-04] MEDS: morphine 2 MG INJ IV ×10 (05:39→23:43)
[2018-12-04 05:52] LABS: ALANINE AMINOTRANSFERASE 37 IU/L (13-69); ALBUMIN 2.3 g/dl (3.3-4.9); ALKALINE PHOSPHATASE 49 IU/L (42-121); ASPARTATE AMINO TRANSFERASE 50 IU/L (15-46); BILIRUBIN,INDIRECT 4.5 mg/dl (0-1.1); BILIRUBIN,TOTAL 18.5 mg/dl (0.2-1.3); TOTAL PROTEIN 5.4 g/dl (6.1-8.1)
[2018-12-04 05:56] LABS: ANION GAP 7 (5-13); BLOOD UREA NITROGEN 28 mg/dl (7-20); CALCIUM 7.1 mg/dl (8.4-10.2); CARBON DIOXIDE 19 mmol/L (21-31); CHLORIDE 110 mmol/L (97-110); CREATININE 0.67 mg/dl (0.61-1.24); Estimated GFR > 60 mL/min (>60); GLUCOSE 352 mg/dl (70-220); MAGNESIUM 1.8 mg/dl (1.7-2.5); PHOSPHORUS 2.7 mg/dl (2.5-4.9); POTASSIUM 3.3 mmol/L (3.5-5.1); SODIUM 136 mmol/L (135-144)
[2018-12-04 05:58] LABS: ALANINE AMINOTRANSFERASE 50 IU/L (13-69); ALBUMIN 2.2 g/dl (3.3-4.9); ALBUMIN/GLOBULIN RATIO 0.68; ALKALINE PHOSPHATASE 54 IU/L (42-121); ANION GAP 7 (5-13); ASPARTATE AMINO TRANSFERASE 47 IU/L (15-46); BILIRUBIN,INDIRECT 4.3 mg/dl (0-1.1); BILIRUBIN,TOTAL 18.4 mg/dl (0.2-1.3); BLOOD UREA NITROGEN 28 mg/dl (7-20); CALCIUM 7.2 mg/dl (8.4-10.2); CARBON DIOXIDE 20 mmol/L (21-31); CHLORIDE 113 mmol/L (97-110); CREATININE 0.69 mg/dl (0.61-1.24); Estimated GFR > 60 mL/min (>60); GLUCOSE 251 mg/dl (70-220); SODIUM 140 mmol/L (135-144); TOTAL PROTEIN 5.4 g/dl (6.1-8.1)
[2018-12-04] MEDS: DEXTROSE 5%-0.45% NACL 1,000 ML IV (06:30)
[2018-12-04] MEDS: PHENYLephrine 80 MG in DEXTROSE 5% 242 ML IV (06:33)
[2018-12-04 06:52] LABS: WHITE BLOOD COUNT 7.7 10^3/ul (4.8-10.8)
[2018-12-04 06:52] LABS: ABNORMAL IP MESSAGE 1; BASOPHILS % 0.1 % (0.0-2.0); EOSINOPHILS % 0.4 % (0.0-7.0); HEMATOCRIT 29.1 % (42.0-52.0); HEMOGLOBIN 9.4 g/dl (14.0-18.0); LYMPHOCYTES # 0.6 10^3/ul (0.8-2.9); MEAN CORPUSCULAR HEMOGLOBIN 29.9 pg (29.0-33.0); MEAN CORPUSCULAR HGB CONC 32.3 g/dl (32.0-37.0); MEAN CORPUSCULAR VOLUME 92.7 fl (82.0-101.0); MONOCYTE # 0.6 10^3/ul (0.3-0.9); MONOCYTES % 7.6 % (0.0-11.0); NEUTROPHIL # 6.3 10^3/ul (1.6-7.5); NEUTROPHILS % 81.7 % (39.0-77.0); NUCLEATED RED BLOOD CELLS # 0.5 10^3/ul (0.0-0.0); PLATELET COUNT 43 10^3/UL (140-415); POSITIVE DIFF @See below; RED BLOOD COUNT 3.14 10^6/ul (4.70-6.10); RED CELL DISTRIBUTION WIDTH 23.7 % (11.5-14.5)
[2018-12-04 07:39] LABS: POTASSIUM 3.4 mmol/L (3.5-5.1)
[2018-12-04 07:59] LABS: ANISOCYTOSIS 2+ (0-0); BAND NEUTROPHILS % (M) 14 % (0-4); BURR CELLS 3+ (0-0); ERYTHROBLAST% (NRBC) (M) 7 % (0-0); LYMPHOCYTES #M 0.2 10^3/ul (0.8-2.9); LYMPHOCYTES % (M) 3 % (15-51); MICROCYTOSIS 1+ (0-0); MONOCYTE #M 0.4 10^3/ul (0.3-0.9); MONOCYTES % (M) 6 % (0-11); MYELOCYTES % (M) 1 % (0-0); PLATELET ESTIMATE SIG DECREASED; POIKILOCYTOSIS 3+ (0-0); POLYCHROMASIA 3+ (0-0); PROMYELOCYTES % (M) 1 % (0-0); SEG NEUT #M 5.9 10^3/ul (1.6-7.5); SEGMENTED NEUTROPHILS (M) % 75 % (39-77); SMUDGE%M 3 % (0-0); TARGET CELLS 1+ (0-0)
[2018-12-04] MEDS: MIDODRINE 5 MG TAB GTB ×2 (08:05→10:12)
[2018-12-04] MEDS: QUETIAPINE 25 MG TAB PO (08:06)
[2018-12-04] MEDS: CITALOPRAM 20 MG TAB PO (08:06)
[2018-12-04] MEDS: POTASSIUM CHLORIDE 100 ML IVPB ×2 (08:20→10:12)
[2018-12-04] MEDS: FAMOTIDINE 20 MG INJ IV (08:20)
[2018-12-04] MEDS: MEROPENEM 1 GM/50ML(PMX) 50 ML IVPB (08:21)
[2018-12-04] MEDS: MICONAZOLE 2% 30 GM CR TOP (08:33)
[2018-12-04] MEDS ORDERED: DEXTROSE 50% 50 ML SYRINGE IV ×2 (09:30)
[2018-12-04] MEDS ORDERED: GLUCOSE GEL 15 GRAM TUBE PO ×2 (09:30)
[2018-12-04] MEDS ORDERED: GLUCOSE GEL 15 GRAM TUBE BUCCAL (09:30)
[2018-12-04] MEDS ORDERED: GLUCAGON 1 MG INJ IM (09:30)
[2018-12-04] MEDS ORDERED: morphine 2 MG INJ IV (12:30)
[2018-12-04 12:47] LABS: HAPTOGLOBIN <8 mg/dL (43-212)
[2018-12-04] MEDS ORDERED: ACETAMINOPHEN 650 MG SUPP PR (13:00)
[2018-12-04] MEDS: LORAZEPAM 2 MG INJ IV ×2 (13:08→16:53)
[2018-12-04] MEDS: SCOPOLAMINE 1.5 MG PATCH TRANSDERM (13:24)
[2018-12-05] MEDS: morphine 2 MG INJ IV (03:46)
[2018-12-05] MEDS: ATROPINE 1% 5 ML OPH SL ×6 (08:06→22:14)
[2018-12-05] MEDS: morphine (DRIP) 100 MG/100 ML 100 ML IV ×2 (12:46→16:38)
[2018-12-05 15:17] LABS: PROTEIN C 26 % normal (70-180)
[2018-12-06] MEDS: ATROPINE 1% 5 ML OPH SL ×6 (05:53→20:00)
[2018-12-06] MEDS: LORAZEPAM 2 MG INJ IV ×2 (09:35→18:14)
[2018-12-06] MEDS: FUROSEMIDE 40 MG INJ IV (10:44)
[2018-12-06] MEDS: morphine (DRIP) 100 MG/100 ML 100 ML IV (20:03)
== END 2018-12-07 04:40 | disposition expired | DRG 871 ==
LOC: MS1 12-05 01:00 → ICU 13:20
PROC: 02HV33Z Insertion of Infusion Device into Superior Vena Cava, Percutaneous Approach (ICD-10-PCS; principal; 2018-11-26)
PROC: 30233N1 Transfusion of Nonautologous Red Blood Cells into Peripheral Vein, Percutaneous Approach (ICD-10-PCS; 2018-11-26)
PROC: 30233R1 Transfusion of Nonautologous Platelets into Peripheral Vein, Percutaneous Approach (ICD-10-PCS; 2018-11-28)
PROC: 30233K1 Transfusion of Nonautologous Frozen Plasma into Peripheral Vein, Percutaneous Approach (ICD-10-PCS; 2018-12-03)
DX: A41.9 Sepsis, unspecified organism (principal); R65.21 Severe sepsis with septic shock; J69.0 Pneumonitis due to inhalation of food and vomit; G92 Toxic encephalopathy; N17.0 Acute kidney failure with tubular necrosis; I50.23 Acute on chronic systolic (congestive) heart failure; J96.01 Acute respiratory failure with hypoxia; G93.1 Anoxic brain damage, not elsewhere classified; D62 Acute posthemorrhagic anemia; I42.9 Cardiomyopathy, unspecified; R04.89 Hemorrhage from other sites in respiratory passages; E87.0 Hyperosmolality and hypernatremia; I13.0 Hypertensive heart and chronic kidney disease with heart failure and stage 1 through stage 4 chronic kidney disease, or unspecified chronic kidney disease; I47.2 Ventricular tachycardia; E87.2 Acidosis; R18.8 Other ascites; D68.9 Coagulation defect, unspecified; B49 Unspecified mycosis; D69.6 Thrombocytopenia, unspecified; I25.10 Atherosclerotic heart disease of native coronary artery without angina pectoris; N18.3 Chronic kidney disease, stage 3 (moderate); E11.22 Type 2 diabetes mellitus with diabetic chronic kidney disease; I48.0 Paroxysmal atrial fibrillation; K74.60 Unspecified cirrhosis of liver; R19.5 Other fecal abnormalities; Z95.810 Presence of automatic (implantable) cardiac defibrillator; Z95.2 Presence of prosthetic heart valve; Z86.74 Personal history of sudden cardiac arrest; Z66 Do not resuscitate
CPT/HCPCS: 36430; 36569; 36600; 70450; 71045; 76705; 76775; 76937; 80048; 80053; 80076; 80162; 81001; 81003; 82043; 82140; 82270; 82533; 82803; 82962; 83010; 83036; 83540; 83605; 83615; 83735; 84100; 84145; 84155; 84300; 84439; 84443; 85025; 85045; 85049; 85302; 85384; 85610; 85670; 85730; 86644; 86704; 86803; 86850; 86900; 86901; 86920; 86945; 87040-91; 87081; 87086; 87340; 92526; 92610; 94640; 94664